=== PATIENT | female | born 1940 | race Caucasian/White ===

== ENCOUNTER 2017-07-29 05:14 | Day surgery (SDC) | payer MEDICARE, OTHER | END 2017-07-29 09:54 | disposition home or self-care (01) | LOC: D.OPS 05:14 | DX: M76.61 Achilles tendinitis, right leg (principal); M77.31 Calcaneal spur, right foot; I10 Essential (primary) hypertension; M06.9 Rheumatoid arthritis, unspecified; Z01.812 Encounter for preprocedural laboratory examination ==

== ENCOUNTER → 2017-09-18 13:48 | Outpatient (CLI) | payer MEDICARE, OTHER ==
[2017-07-29 05:53] VITALS: BMI 30.7
[~2017-09-18 13:48] MED LIST: ASCORBIC ACID500 MG PO; BIOTIN5 MG PO; CALTRATE-600600 MG PO; CELEBREX200 MG PO; ESTRACE1 MG PO; FISH OIL 1,2001 CA1 PO; FOLIC ACID1 MG; FORMULA E400 UNIT PO; LISINOPRIL10 MG PO; MAXZIDE-25 MG T1 TAB PO; PYRIDOXINE HCL100 MG PO; TREXALL5 MG PO
== END | disposition home or self-care (01) ==
LOC: D.MAMMO 09:45
DX: Z12.31 Encounter for screening mammogram for malignant neoplasm of breast (principal)

== ENCOUNTER → 2017-10-27 13:05 | Outpatient (CLI) | payer MEDICARE, OTHER ==
[2017-07-29 05:53] VITALS: BMI 30.7
== END | disposition home or self-care (01) ==
LOC: D.MAMMO 09:30
DX: R92.8 Other abnormal and inconclusive findings on diagnostic imaging of breast (principal)